=== PATIENT | male | born 1990 | race Caucasian/White ===

== ENCOUNTER 2022-02-07 07:58 | Outpatient (REF) | payer BC, MEDICAID, SELFPAY ==
[2022-02-07 09:32] LABS: Alanine Aminotransferase 34 U/L (0-40); Albumin Level 4.7 g/dL (3.5-5.0); Alkaline Phosphatase 59 U/L (39-117); Anion Gap 16 (12-20); Aspartate Amino Transferase 47 U/L (5-37); Bilirubin Total < 0.2 mg/dL (0.0-1.0); Blood Urea Nitrogen 11 mg/dL (9-16); Carbon Dioxide 26 mmol/L (22-29); Chloride 103 mmol/L (96-108); Estimated Glomerular Filt Rate > 60; Glucose Random 116 mg/dL (60-115); Potassium 3.8 mmol/L (3.3-5.1); Sodium 141 mmol/L (135-145); Total Protein 7.1 g/dL (6.5-8.0)
[2022-02-07 09:53] LABS: Amphetamine Screen Urine Not Detected (Not Detect); Barbiturates, Urine Not Detected (Not Detect); Benzodiazepines Screen Urine Not Detected (Not Detect); Cannabinoid Screen Urine Not Detected (Not Detect); Cocaine Screen Urine Not Detected (Not Detect); Fentanyl, urine Not Detected (Not Detect); Opiate Screen Urine Not Detected (Not Detect); Phencyclidine Screen Urine Not Detected (Not Detect)
[2022-02-07 09:54] LABS: Free T4 (Free Thyroxine) 1.06 ng/dL (0.71-1.85); Thyroid Stimulating Hormone 1.41 uIU/mL (0.32-4.0)
== END 2022-02-07 07:59 | disposition home or self-care (01) ==
LOC: HO.LAB 07:58
PROVIDERS: Visit Provider Nurse Practitioner Psychiatric/Mental Health
DX: F31.2 Bipolar disorder, current episode manic severe with psychotic features (principal); F12.20 Cannabis dependence, uncomplicated
CPT/HCPCS: 80053; 80307; 84439; 84443

== ENCOUNTER 2022-02-25 11:49 | Outpatient (REF) | payer MEDICAID, SELFPAY ==
[2022-02-25 12:10] LABS: MANUAL DIFF FLAG NO
[2022-02-25 12:28] LABS: Basophils Percent Auto 0.3 % (0-2); Eosinophils Absolute Auto 0.1 X10*3/uL (0.0-0.4); Eosinophils Percent Auto 1.6 % (0-4); Hematocrit 43.7 % (42.0-52.0); Hemoglobin 14.6 g/dl (14.0-18.0); Imm Gran Abs Auto 0.02 X10*3/uL (0.00-0.03); Imm Gran Pct Auto 0.5 % (0.0-0.4); Lymphocytes Absolute Auto 0.9 X10*3/uL (1.2-4.9); Lymphocytes Percent Auto 22.7 % (20-40); Mean Corpuscular HGB Conc 33.4 g/dl (31.0-36.0); Mean Corpuscular Hemoglobin 29.5 pg (27.0-33.0); Mean Corpuscular Volume 88.3 fL (80.0-98.0); Mean Platelet Volume 11.2 fL (9.4-12.4); Monocytes Absolute Auto 0.2 X10*3/uL (0.1-1.2); Neutrophils Absolute Auto 2.6 x10*3/uL (2.0-8.3); Neutrophils Percent Auto 68.9 % (45-73); Platelet Count 176 X10*3/uL (160-400); Red Blood Count 4.95 X10*6/uL (4.60-5.80); Red Cell Distribution Width 11.9 % (11.0-16.0); White Blood Count 3.8 X10*3/uL (4.8-10.8)
== END 2022-02-25 11:50 | disposition home or self-care (01) ==
LOC: HO.LAB 11:49
PROVIDERS: PCP Family Medicine; Visit Provider Nurse Practitioner Psychiatric/Mental Health
DX: F31.2 Bipolar disorder, current episode manic severe with psychotic features (principal); F12.20 Cannabis dependence, uncomplicated
CPT/HCPCS: 36415; 85025

== ENCOUNTER 2022-02-28 09:00 | Outpatient (RCR) | payer BC, OTHER, SELFPAY ==
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
--- NOTE | 2022-02-06 16:09 | P.PNPSP_ITS ---
Subjective Subjective Date of Service: 02/06/22 Reason For Visit: MDD Medical Problems Affecting Mental Status: No Interim History: Describes mood as ?I am doing okay today ?. Continues with some mood dysregulation, depression/anxiety. No SI, HI, feels safe. States that he has been experiencing frustration at times, does not feel comfortable with this. Has recently stopped cannabis, nicotine, caffeine, believes either this or his medications are causing him to have tension headaches. Medication Compliance: Yes Side effects from medications: Yes (Questioning ) Attending Groups: Yes Review of Systems Acute medical concerns: No Medical Review of Systems: unchanged Review of Systems Review of Systems Yes all other systems are reviewed and are negative Constitutional: Reports headache(s) Reports headache(s) Reports headache(s) Assessment & Plan Assessment & Plan (1) Bipolar I disorder, most recent episode manic, severe with psychotic features: Status: Acute Code(s): F31.2 - Bipolar disorder, current episode manic severe with psychotic features Assessment and Plan: Describes mood as ?I am doing okay today ?. Continues with some mood dysregulation, depression/anxiety. No SI, HI, feels safe. States that he has been experiencing frustration at times, does not feel comfortable with this. States that this was more frequent before he was hospitalized, has occurred to a lesser degree recently. Would like to focus on changing this behavior. Participating fully in groups, finding them helpful. Has recently stopped cannabis, nicotine, caffeine, believes either this or his medications are causing him to have tension headaches. We discussed this in detail, including each medication, and potential side effects. Wellbutrin is relatively new, and has been taking 300 mg XL daily. We also discussed withdrawal symptoms regarding caffeine, nicotine, cannabis. Patient is agreeable to obtaining lab work at this time, to help discern whether a medical cause or withdrawals. Patient reports he has had this checked by a neurologist in the past, as he has had these headaches in the past. He states he was told he had a normal neurological exam. He states that once in a while ?my whole body will jerk up ?. He states he has been experiencing these since 2019, and believes it is some sort of side effect to a medication he had taken in the past. (2) Post-traumatic stress disorder, chronic: Status: Acute Code(s): F43.12 - Post-traumatic stress disorder, chronic Assessment and Plan: No reports overt PTSD symptoms at this time. (3) Attention-deficit hyperactivity disorder, predominantly inattentive type: Status: Acute Code(s): F90.0 - Attention-deficit hyperactivity disorder, predominantly inattentive type Assessment and Plan: Patient taking Wellbutrin, appears to be helping with ADHD type symptoms. (4) Cannabis use disorder, severe, dependence: Status: Acute Code(s): F12.20 - Cannabis dependence, uncomplicated Assessment and Plan: Patient continues to remain abstinent from cannabis. Fully participating in COD group. Exploring addictive behaviors, focused on tools of recovery. He reports that since cessation he has been eating more sugar. He states that this is triggering symptoms of an old eating disorder, and he is concerned. He is trying other coping skills rather than consuming sugar. Plan 1. Continue with current [facility] plan of care. 2. Labs ordered including Gen Chem profile, HOYT, free T4, TSH. 3. Continue with current medication regimen at this time. 4. Follow-up as per protocol. Patient educated on: diagnosis, medication risk/benefits, substance abuse and therapeutic strategies Informed Consent: understands Reason for contiued partial hosp. stay Substantial Risk for: harm to self, inability to function, rapid decompensation and med/psych decompensation Certification I certify that partial hospital treatment is medically necessary due to the symptoms and problems resulting from the patient's mental illness and the failure to treat the patient at the partial hospital level of care would likely result in the patient requiring inpatient psychiatric care which could not be prevented at a less intensive level of care. I spent minutes with the patient and/or on the patient floor today, greater than?50% of which was spent counseling/coordinating care. Discharge Plan Discharge Attending provider: Roel Hamilton Medications: No Action lamotrigine 200 mg Tablet 200 mg PO BEDTIME prazosin 1 mg Capsule 1 mg PO BEDTIME gabapentin 400 mg Capsule 400 mg PO BEDTIME olanzapine 2.5 mg Tablet 2.5 mg PO BEDTIME lamotrigine 25 mg Tablet 50 mg PO DAILY Rx Instructions: Take 2 tabs daily. lorazepam 0.5 mg Tablet 0.5 mg PO DAILY PRN (Reason: Anxiety) gabapentin 300 mg Capsule 300 mg PO BID bupropion HCl 150 mg Tablet Extended Release 24 Hr 300 mg PO QAM Rx Instructions: Take 2 tabs daily. melatonin 5 mg Tablet 5 mg PO BEDTIME PRN (Reason: Insomnia) 95-iron [id number] 28 mg iron-800 mcg-200 mg Combo Pack PO Telehealth Telehealth Location of provider rendering services: practice address Location of patient: address on file Patient Identification confirmed using: Name, : Yes Telehealth method: video Patient verbally consented to treatment: Yes Patient verbally consented to billing insurance company: Yes Patient informed of any privacy concerns related to visit: Yes Minutes spent on Phone/Video with Pt.: 15
--- NOTE | 2022-02-06 16:18 | PC.NURSE ---
case opened in treatment team.
--- NOTE | 2022-02-06 16:31 | PC.NURSE ---
I called and spoke with pt. Reviewed treatment plan and discussed schedule. he said he is learning a lot and getting a lot out of treatment, and generally doing well with it. We spoke about aftercare as well. Pt had a scheduled intake at [facility] for Sunday 02/04 at 11am, but upon intake for PHP, was asked by staff here to reschedule so that he can attend his first day of PHP. When he called to reschedule, they told him to just call if you still need treatment after PHP . However, he said he thinks he would really like to stay with his therapist in [place], who he's been with or many years. We discussed options for finding a therapist in private practice, and how to search on [employer] search engine. I agreed to call Lizabeth Kent aprn, Lina Oneill aprn, and whoever else staff can think of as a first step. Pt also is in need of a PCP. He said he hasn't had one in many many years, sharing that he's quite avoidant. I told him I'd talk to the program nurse about this, and that she might be able to help find a PCP.
--- NOTE | 2022-02-10 11:07 | PC.NURSE ---
Spoke to Kelton this morning. His BC[employer] insurance is no longer in effect. He stated he had an appointment last Thursday to go on [employer] however he stated he also has an appointment with the same person today regarding insurance as they were not able to complete the process on Thursday. Patient plans on calling staff and letting us know of his new insurance. Patient does not want to continue the program with out insurance. Patient also had an appointment for f/u care after he was hospitalized with [facility] for a therapist and prescriber however he did not go to the appointment and he plans on calling [facility] today to rescheduled appointments.
--- NOTE | 2022-02-11 14:22 | P.PNPSP_ITS ---
Subjective Subjective Date of Service: 02/11/22 Reason For Visit: MDD Medical Problems Affecting Mental Status: No Interim History: Describes mood as up and down . States he has had several crying spells. Reports feeling like he is spiraling mid day. Complains of headache, unsure if it is related to recent cannabis cessation, caffeine cessation, current relationship stress, possibly medications. Itchiness on scalp, rash for past 1 and half weeks. Had recent increase of Lamictal, also started using Endo shampoo. No SI/HI, no safety concerns. Medication Compliance: Yes Side effects from medications: Yes (Possible, unsure.) Attending Groups: Yes Review of Systems Acute medical concerns: No Medical Review of Systems: changed Review of Systems Review of Systems Yes all other systems are reviewed and are negative Constitutional: Reports no additional constitutional complaints Comments: No concerns with vision. Reports Normal hearing present Cardiovascular: Reports no additional cardiovascular complaints Respiratory: Reports no additional respiratory complaints Gastrointestinal: Reports no additional gastrointestinal complaints Genitourinary: Reports no additional male genitourinary complaints Musculoskeletal: Reports no additional musculoskeletal complaints Skin/Breast: Reports dry skin (on scalp), Reports erythema (on scalp) and Reports rash (on scalp) Reports Normal hearing present Mental Status Exam Mental Status Exam Narrative: Alert and oriented x4, appropriate/attentive during encounter. NAD. Patient Appearance: Appropriate Patient Orientation: Person, Place, Time and Situation Level of Consciousness: Appropriate Patient Behavior: Appropriate, Cooperative and Good Eye Contact Mood Description: Depressed, Anxious and Labile Affect Description: Anxious Patient Cognition Impaired: No Ability to Follow Directions: Good Speech Pattern: Clear, Appropriate and Coherent Memory Description: Intact Hallucinations: None Delusions: Not Present Thought Process: Intact Thought Content: positive for Intact Depressive Symptoms: Increased Anxiety, Difficulty Sleeping, Feelings of Guilt and Unexplained Headaches Judgement: Fair Assessment & Plan Assessment & Plan (1) Bipolar I disorder, most recent episode manic, severe with psychotic features: Status: Acute Code(s): F31.2 - Bipolar disorder, current episode manic severe with psychotic features Assessment and Plan: Describes mood as up and down . States he has had several crying spells. Continues with increased anxiety, asking for antianxiety medication, as he only has 6 tabs of lorazepam left. We discussed adding BuSpar scheduled, discuss risks and benefits, common side effects, adverse effects, advantages, alternatives to treatment. He was in agreement to start this medication at this time. Reports feeling like he is spiraling mid day. He states that he does not feel his mood is appropriately regulated at this time, interested in increasing olanzapine. Discussed this in detail, patient agreeable to increase dose to 2.5 mg twice daily. Complains of headache, unsure if it is related to recent cannabis cessation, caffeine cessation, current relationship stress, possibly medications. Lab results reviewed with patient. Itchiness on scalp, localized rash for past 1 and half weeks on back of head. Rash not spreading or worsening. Had recent increase of Lamictal, but also started using a new shampoo 1 1/2 weeks ago. Discussed recent increase of Lamictal, as well as use of new shampoo as possible causes of rash. Patient has a history of taking Lamictal with no side effects, no previous rashes. Discussed stopping the new shampoo to see if rash resolves. No SI/HI, no safety concerns. (2) Post-traumatic stress disorder, chronic: Status: Acute Code(s): F43.12 - Post-traumatic stress disorder, chronic Assessment and Plan: Patient utilizing prazosin 1 mg at night. Questions whether not he should stop this medication at this time, as he continues with dreams, but does not describe them as fully nightmares. We discussed continuing this medication at this time, as it appears to be helping with PTSD symptoms. (3) Attention-deficit hyperactivity disorder, predominantly inattentive type: Status: Acute Code(s): F90.0 - Attention-deficit hyperactivity disorder, predominantly inattentive type Assessment and Plan: Patient takes Wellbutrin 300 mg daily. He reports that his appears to be helping with ADHD, but is wondering if this is contributing to headaches. We discussed this in detail. Patient had recently stopped using cannabis, as well as nicotine and caffeine. Patient states he has begun to use low amount of nicotine gum, as well as low amount of caffeine. Will wait to see if this resolves headaches, with possible discussion of lowering Wellbutrin dose during next encounter if needed. (4) Cannabis use disorder, severe, dependence: Status: Acute Code(s): F12.20 - Cannabis dependence, uncomplicated Assessment and Plan: Patient continues to remain abstinent from cannabis use at this time. Plan 1. Continue with current [facility] plan of care. 2. Start BuSpar 10 mg b.i.d.. Script for 7 days sent to pharmacy. 3. Increase the olanzapine to 2.5 mg b.i.d., 7 day script sent to pharmacy. 4. Follow-up as per protocol. Patient educated on: diagnosis, medication risk/benefits, substance abuse and therapeutic strategies Informed Consent: understands Reason for contiued partial hosp. stay Substantial Risk for: harm to self, inability to function, rapid decompensation and med/psych decompensation Certification I certify that partial hospital treatment is medically necessary due to the symptoms and problems resulting from the patient's mental illness and the failure to treat the patient at the partial hospital level of care would likely result in the patient requiring inpatient psychiatric care which could not be prevented at a less intensive level of care. I spent minutes with the patient and/or on the patient floor today, greater than?50% of which was spent counseling/coordinating care. Discharge Plan Discharge Attending provider: Roel Hamilton Medications: New olanzapine 2.5 mg tablet 2.5 mg PO BID Qty: 14 0RF buspirone 10 mg tablet 10 mg PO BID Qty: 14 0RF Discontinued olanzapine 2.5 mg Tablet 2.5 mg PO BEDTIME No Action lamotrigine 200 mg Tablet 200 mg PO BEDTIME prazosin 1 mg Capsule 1 mg PO BEDTIME gabapentin 400 mg Capsule 400 mg PO BEDTIME lamotrigine 25 mg Tablet 50 mg PO DAILY Rx Instructions: Take 2 tabs daily. lorazepam 0.5 mg Tablet 0.5 mg PO DAILY PRN (Reason: Anxiety) gabapentin 300 mg Capsule 300 mg PO BID bupropion HCl 150 mg Tablet Extended Release 24 Hr 300 mg PO QAM Rx Instructions: Take 2 tabs daily. melatonin 5 mg Tablet 5 mg PO BEDTIME PRN (Reason: Insomnia) 95-iron [id number] 28 mg iron-800 mcg-200 mg Combo Pack PO Telehealth Telehealth Location of provider rendering services: practice address Location of patient: address on file Patient Identification confirmed using: Name, : Yes Telehealth method: video Patient verbally consented to treatment: Yes Patient verbally consented to billing insurance company: Yes Patient informed of any privacy concerns related to visit: Yes Minutes spent on Phone/Video with Pt.: 25
--- NOTE | 2022-02-13 16:28 | PC.NURSE ---
I met with pt at their request. The reported feeling quite overwhelmed with choosing an insurance plan and with accessing a PCP and med provider. They asked for help calling [facility] to see if they can get in with a PCP and possible psychiatric med provider. They explained that they were told by the hospital financial counselor that they should first make an appt at [facility], who will take care plus, then choose a plan. They called [facility] from my office and were told that the agency doesn't take Care plus Insurance. We spoke about prioritizing tasks and pt agreed to call the financial counselor back.
--- NOTE | 2022-02-17 10:17 | HO.PHPPROGNO ---
Subjective Subjective Date of Service: 02/17/22 Reason For Visit: MDD Medical Problems Affecting Mental Status: No Interim History: States ?regulating my mood is tough without the cannabis ?. Finding BuSpar helpful, wishes to increase it to 3 times daily. Needs refill of melatonin. No SI/HI, no safety concerns. Medication Compliance: Yes Side effects from medications: No Attending Groups: Yes Review of Systems Acute medical concerns: No Medical Review of Systems: unchanged Review of Systems Review of Systems Yes all other systems are reviewed and are negative Constitutional: Reports no additional constitutional complaints Mental Status Exam Mental Status Exam Narrative: Alert and oriented x4, appropriate/attentive during encounter. NAD. Patient Appearance: Appropriate Patient Orientation: Person, Place, Time and Situation Level of Consciousness: Appropriate Patient Behavior: Appropriate, Cooperative and Good Eye Contact Mood Description: Depressed and Anxious Affect Description: Anxious Patient Cognition Impaired: No Ability to Follow Directions: Good Speech Pattern: Clear, Appropriate and Coherent Memory Description: Intact Hallucinations: None Delusions: Not Present Thought Process: Intact Thought Content: positive for Intact Depressive Symptoms: Increased Anxiety, Difficulty Sleeping and Feelings of Guilt Judgement: Fair Assessment & Plan Assessment & Plan (1) Bipolar I disorder, most recent episode manic, severe with psychotic features: Status: Acute Code(s): F31.2 - Bipolar disorder, current episode manic severe with psychotic features Assessment and Plan: States ?regulating my mood is tough without the cannabis ?. No real mood lability, no increased depression or any type of hypomanic/manic symptoms. Finding BuSpar helpful, wishes to increase it to 3 times daily. Needs refill of melatonin. No SI/HI, no safety concerns. (2) Cannabis use disorder, severe, dependence: Status: Acute Code(s): F12.20 - Cannabis dependence, uncomplicated Assessment and Plan: Continues to remain abstinent from cannabis, finding this to be difficult, reports cravings at times. We discussed adding regular morning exercise, eating healthy foods, increase hydration in order to help with withdrawals. (3) Post-traumatic stress disorder, chronic: Status: Acute Code(s): F43.12 - Post-traumatic stress disorder, chronic Plan 1. Continue with current [facility] plan of care. 2. Increase BuSpar to 10 mg t.i.d.. 3. Refill of melatonin 5 mg p.r.n. for sleep sent to pharmacy. 4. Follow-up as per protocol. Patient educated on: diagnosis, medication risk/benefits, substance abuse and therapeutic strategies Informed Consent: understands Reason for contiued partial hosp. stay Substantial Risk for: inability to function, rapid decompensation and med/psych decompensation Certification I certify that partial hospital treatment is medically necessary due to the symptoms and problems resulting from the patient's mental illness and the failure to treat the patient at the partial hospital level of care would likely result in the patient requiring inpatient psychiatric care which could not be prevented at a less intensive level of care. I spent minutes with the patient and/or on the patient floor today, greater than?50% of which was spent counseling/coordinating care. Discharge Plan Discharge Attending provider: Roel Hamilton Medications: New olanzapine 2.5 mg tablet 2.5 mg PO BID Qty: 14 0RF prazosin 1 mg capsule 1 mg PO BEDTIME 30 Days Qty: 30 0RF lamotrigine 200 mg tablet 200 mg PO BEDTIME Qty: 30 0RF gabapentin 400 mg capsule 400 mg PO BEDTIME Qty: 30 0RF gabapentin 300 mg capsule 300 mg PO BID Qty: 60 0RF buspirone 10 mg tablet 10 mg PO TID 30 Days Qty: 90 0RF melatonin 5 mg tablet 5 mg PO BEDTIME PRN (Reason: sleep) Qty: 30 0RF Discontinued lamotrigine 200 mg Tablet 200 mg PO BEDTIME prazosin 1 mg Capsule 1 mg PO BEDTIME gabapentin 400 mg Capsule 400 mg PO BEDTIME olanzapine 2.5 mg Tablet 2.5 mg PO BEDTIME gabapentin 300 mg Capsule 300 mg PO BID melatonin 5 mg Tablet 5 mg PO BEDTIME PRN (Reason: Insomnia) No Action lamotrigine 25 mg Tablet 50 mg PO DAILY Rx Instructions: Take 2 tabs daily. lorazepam 0.5 mg Tablet 0.5 mg PO DAILY PRN (Reason: Anxiety) bupropion HCl 150 mg Tablet Extended Release 24 Hr 300 mg PO QAM Rx Instructions: Take 2 tabs daily. 95-iron [id number] 28 mg iron-800 mcg-200 mg Combo Pack PO
--- NOTE | 2022-02-19 11:19 | PC.NURSE ---
Patient does not want to take Buspar. Stated it is not helping with his anxiety and he feels tingling sensations and skin tightening while on the medication. Daya Vargas CNP is aware. Patient discontinuing medication.
--- NOTE | 2022-02-20 11:56 | P.PNPSP_ITS ---
Subjective Subjective Date of Service: 02/20/22 Reason For Visit: MDD Medical Problems Affecting Mental Status: No Interim History: Kelton reports feeling some anxiety, but overall improved. No mood lability reported. Continues to maintain abstinence from cannabis use. Asking for refill olanzapine. Has only been taking at night, not twice daily. Stopped BuSpar due to side effects. Gives verbal permission and is requesting discharge summary be sent to his therapist at fax [phone]. Medication Compliance: Yes Side effects from medications: Yes Attending Groups: Yes Review of Systems Acute medical concerns: No Review of Systems Review of Systems Yes all other systems are reviewed and are negative Constitutional: Reports no additional constitutional complaints Mental Status Exam Mental Status Exam Narrative: Alert and oriented x4, appropriate/attentive during encounter. NAD. Patient Appearance: Appropriate Patient Orientation: Person, Place, Time and Situation Level of Consciousness: Appropriate Patient Behavior: Appropriate, Cooperative and Good Eye Contact Mood Description: Anxious (States it is improving but still present.) Affect Description: Anxious Patient Cognition Impaired: No Ability to Follow Directions: Good Speech Pattern: Clear, Appropriate and Coherent Memory Description: Intact Hallucinations: None Delusions: Not Present Thought Process: Intact Thought Content: positive for Intact Depressive Symptoms: Increased Anxiety Judgement: Good Assessment & Plan Assessment & Plan (1) Bipolar I disorder, most recent episode manic, severe with psychotic features: Status: Acute Code(s): F31.2 - Bipolar disorder, current episode manic severe with psychotic features (2) Post-traumatic stress disorder, chronic: Status: Acute Code(s): F43.12 - Post-traumatic stress disorder, chronic (3) Cannabis use disorder, severe, dependence: Status: Acute Code(s): F12.20 - Cannabis dependence, uncomplicated (4) Attention-deficit hyperactivity disorder, predominantly inattentive type: Status: Acute Code(s): F90.0 - Attention-deficit hyperactivity disorder, predominantly inattentive type Plan Kelton reports feeling some anxiety, but overall improved. Has found groups to be helpful. Reports feels stable for discharge from [facility]. No mood lability reported. No SI/HI, no safety concerns. No AH/VH. Continues to maintain abstinence from cannabis use. Asking for refill olanzapine. Has only been taking at night, not twice daily. Stopped BuSpar due to side effects. 1. Refill of olanzapine sent to pharmacy for 30 day supply. 2. Patient appears stable for discharge from [facility] at this time. Patient educated on: diagnosis, medication risk/benefits, substance abuse and therapeutic strategies Informed Consent: understands Reason for contiued partial hosp. stay Substantial Risk for: stable for discharge Certification I certify that partial hospital treatment is medically necessary due to the symptoms and problems resulting from the patient's mental illness and the failure to treat the patient at the partial hospital level of care would likely result in the patient requiring inpatient psychiatric care which could not be prevented at a less intensive level of care. I spent minutes with the patient and/or on the patient floor today, greater than?50% of which was spent counseling/coordinating care. Discharge Plan Discharge Attending provider: Roel Hamilton Additional Instructions: New PCP appointment with [facility] Margarita KELLER on Thursday at 1:30 PM. Medications: New prazosin 1 mg capsule 1 mg PO BEDTIME 30 Days Qty: 30 0RF lamotrigine 200 mg tablet 200 mg PO BEDTIME Qty: 30 0RF gabapentin 400 mg capsule 400 mg PO BEDTIME Qty: 30 0RF gabapentin 300 mg capsule 300 mg PO BID Qty: 60 0RF melatonin 5 mg tablet 5 mg PO BEDTIME PRN (Reason: sleep) Qty: 30 0RF olanzapine 2.5 mg tablet 2.5 mg PO BEDTIME 30 Days Qty: 30 0RF Discontinued lamotrigine 200 mg Tablet 200 mg PO BEDTIME prazosin 1 mg Capsule 1 mg PO BEDTIME gabapentin 400 mg Capsule 400 mg PO BEDTIME olanzapine 2.5 mg Tablet 2.5 mg PO BEDTIME lorazepam 0.5 mg Tablet 0.5 mg PO DAILY PRN (Reason: Anxiety) gabapentin 300 mg Capsule 300 mg PO BID melatonin 5 mg Tablet 5 mg PO BEDTIME PRN (Reason: Insomnia) No Action lamotrigine 25 mg Tablet 50 mg PO DAILY Rx Instructions: Take 2 tabs daily. bupropion HCl 150 mg Tablet Extended Release 24 Hr 300 mg PO QAM Rx Instructions: Take 2 tabs daily. 95-iron cek-vqaud-[id number] 28 mg iron-800 mcg-200 mg Combo Pack PO Stand Alone Forms: Patient Portal Discharge page
--- NOTE | 2022-02-24 14:47 | PC.NURSE ---
Pt called and I spoke to him. He was not in program today because he had his first appointment with [facility] (PCP- Dr. Linda Cook). He said that despite what he had been told when he made this appointment, he was told today that they will not be able to get him in with a psychiatrist there. He does want to stay with his therapist in [place], and said he has reconsidered and wants to be referred to Lizabeth Sanon APRN (which was the initial plan). I agreed to call and make this referrral.
--- NOTE | 2022-02-25 11:38 | P.PNPSP_ITS ---
Subjective Subjective Date of Service: 02/25/22 Reason For Visit: MDD Medical Problems Affecting Mental Status: No Interim History: Reports increase anxiety, increased anger with angry outbursts. Did not feel ready for discharge last Thursday, is now currently continuing through this week. No SI/HI, no safety concerns. Medication Compliance: Yes Side effects from medications: No Attending Groups: Yes Review of Systems Acute medical concerns: No Medical Review of Systems: unchanged Mental Status Exam Mental Status Exam Narrative: Alert and oriented x4, appropriate/attentive during encounter. NAD. Patient Appearance: Appropriate Patient Orientation: Person, Place, Time and Situation Level of Consciousness: Appropriate Patient Behavior: Appropriate, Cooperative and Good Eye Contact Mood Description: Anxious and Angry (Reports feeling increased anger, angry outbursts) Affect Description: Anxious Patient Cognition Impaired: No Ability to Follow Directions: Good Speech Pattern: Clear, Appropriate and Coherent Memory Description: Intact Hallucinations: None Delusions: Not Present Thought Process: Intact Thought Content: positive for Intact Depressive Symptoms: Increased Anxiety Judgement: Fair Assessment & Plan Assessment & Plan (1) Cannabis use disorder, severe, dependence: Status: Acute Code(s): F12.20 - Cannabis dependence, uncomplicated Assessment and Plan: Reports it has increased anxiety and anger/angry outbursts, believes that his marijuana use had dampened these and now that he has stopped using these symptoms have become more overt. Requesting medication to help. (2) Attention-deficit hyperactivity disorder, predominantly inattentive type: Status: Acute Code(s): F90.0 - Attention-deficit hyperactivity disorder, predominantly inattentive type (3) Post-traumatic stress disorder, chronic: Status: Acute Code(s): F43.12 - Post-traumatic stress disorder, chronic (4) Bipolar I disorder, most recent episode manic, severe with psychotic features: Status: Acute Code(s): F31.2 - Bipolar disorder, current episode manic severe with psychotic features Assessment and Plan: Denies any manic or hypomanic symptoms. Reports that he continues to struggle with mood, although it is improving. Continues with increased anxiety. Finding groups helpful. No SI/HI, no safety concerns. Plan 1. Start clonidine 0.1 mg p.r.n. daily for increased anxiety. Patient advised to hold if blood pressure under 90/60. Patient checks blood pressure every evening, reports that it typically reads as 107/68. 2. Continue other medications as currently prescribed. 3. Follow-up as per protocol. Patient educated on: diagnosis, medication risk/benefits, substance abuse and therapeutic strategies Informed Consent: understands Reason for contiued partial hosp. stay Substantial Risk for: inability to function, rapid decompensation and med/psych decompensation Certification I certify that partial hospital treatment is medically necessary due to the symptoms and problems resulting from the patient's mental illness and the failure to treat the patient at the partial hospital level of care would likely result in the patient requiring inpatient psychiatric care which could not be prevented at a less intensive level of care. I spent minutes with the patient and/or on the patient floor today, greater than?50% of which was spent counseling/coordinating care. Discharge Plan Discharge Attending provider: Roel Hamilton Additional Instructions: New PCP appointment with [facility] Margarita KELLER on Thursday at 1:30 PM. Medications: New prazosin 1 mg capsule 1 mg PO BEDTIME 30 Days Qty: 30 0RF lamotrigine 200 mg tablet 200 mg PO BEDTIME Qty: 30 0RF gabapentin 400 mg capsule 400 mg PO BEDTIME Qty: 30 0RF gabapentin 300 mg capsule 300 mg PO BID Qty: 60 0RF melatonin 5 mg tablet 5 mg PO BEDTIME PRN (Reason: sleep) Qty: 30 0RF olanzapine 2.5 mg tablet 2.5 mg PO BEDTIME 30 Days Qty: 30 0RF clonidine HCl 0.1 mg tablet 0.1 mg PO DAILY PRN (Reason: anxiety) Qty: 14 0RF Rx Instructions: Hold if systolic bp 90 or lower. Discontinued lamotrigine 200 mg Tablet 200 mg PO BEDTIME prazosin 1 mg Capsule 1 mg PO BEDTIME gabapentin 400 mg Capsule 400 mg PO BEDTIME olanzapine 2.5 mg Tablet 2.5 mg PO BEDTIME lorazepam 0.5 mg Tablet 0.5 mg PO DAILY PRN (Reason: Anxiety) gabapentin 300 mg Capsule 300 mg PO BID melatonin 5 mg Tablet 5 mg PO BEDTIME PRN (Reason: Insomnia) No Action lamotrigine 25 mg Tablet 50 mg PO DAILY Rx Instructions: Take 2 tabs daily. bupropion HCl 150 mg Tablet Extended Release 24 Hr 300 mg PO QAM Rx Instructions: Take 2 tabs daily. 95-iron fby-rqykn-[id number] 28 mg iron-800 mcg-200 mg Combo Pack PO Stand Alone Forms: Patient Portal Discharge page
--- NOTE | 2022-02-25 14:04 | PC.NURSE ---
At pt's request, I called and placed a referral for pt to see Lizabeth Sanon APRN. He now has an intake appointment with Lizabeth Sanon on 10/03/21, at 11am, via telehealth. Bloodwork has been ordered at Lizabeth Sanon's request, and pt is aware of this.
--- NOTE | 2022-02-28 10:26 | HO.PHPPROGNO ---
Subjective Subjective Date of Service: 02/28/22 Reason For Visit: MDD Medical Problems Affecting Mental Status: No Interim History: Describes mood as feeling good, better . Took prn clonidine once, did not find helpful with anxiety, but did find it made him feel physically tired, sedated. Reports overall feeling mood has stabilized, less anxious. No angry outbursts. Feels stable for discharge from [facility]. Has outpatient psychiatric provider appointment in place for next Thursday. Medication Compliance: Yes Side effects from medications: Yes (Clonidine, sedation.) Attending Groups: Yes Review of Systems Acute medical concerns: No Medical Review of Systems: unchanged Review of Systems Review of Systems Yes all other systems are reviewed and are negative Constitutional: Reports no additional constitutional complaints Mental Status Exam Mental Status Exam Narrative: Alert and oriented x4, appropriate/attentive during encounter. NAD. No SI/HI, no mood lability or constriction. Patient Appearance: Appropriate Patient Orientation: Person, Place, Time and Situation Level of Consciousness: Appropriate Patient Behavior: Appropriate, Cooperative and Good Eye Contact Mood Description: Anxious Affect Description: Anxious Patient Cognition Impaired: No Ability to Follow Directions: Good Speech Pattern: Clear, Appropriate and Coherent Memory Description: Intact Hallucinations: None Delusions: Not Present Thought Process: Intact Thought Content: positive for Intact Depressive Symptoms: Increased Anxiety Judgement: Good Assessment & Plan Assessment & Plan (1) Bipolar I disorder, most recent episode manic, severe with psychotic features: Status: Acute Code(s): F31.2 - Bipolar disorder, current episode manic severe with psychotic features Assessment and Plan: Describes mood as feeling good, better . Took prn clonidine once, did not find helpful with anxiety, but did find it made him feel physically tired, sedated. We reviewed medication in detail, also including fact that he takes prazosin at night. Does not have nightmares, but was told he should take it by a previous provider to help with PTSD symptoms. Discussed blood pressure parameters. Also discussed possibility that new provider will not keep both medications, most likely will discontinue 1. He states he does not like the clonidine, does not plan to take it. Reports overall feeling mood has stabilized, less anxious. Although he does continue with some degree of anxiety, he feels overall improved. No mood lability noted. No SI/HI, no safety concerns Feels stable for discharge from [facility]. Has outpatient psychiatric provider appointment in place for next Thursday. We reviewed his most recent lab work. Results to be sent to his new psychiatric provider as well as his new primary care provider. (2) Post-traumatic stress disorder, chronic: Status: Acute Code(s): F43.12 - Post-traumatic stress disorder, chronic (3) Cannabis use disorder, severe, dependence: Status: Acute Code(s): F12.20 - Cannabis dependence, uncomplicated Assessment and Plan: Patient has remained abstinent from cannabis as well of alcohol for over an month. Feels physically better. Participated in substance use groups while here, plans to follow-up with treatment going forward. (4) Attention-deficit hyperactivity disorder, predominantly inattentive type: Status: Acute Code(s): F90.0 - Attention-deficit hyperactivity disorder, predominantly inattentive type Plan 1. Patient appears stable for discharge from [facility] at this time. 2. Patient to follow up with outpatient providers going forward. Patient educated on: diagnosis, medication risk/benefits, substance abuse and therapeutic strategies Informed Consent: understands Reason for contiued partial hosp. stay Substantial Risk for: stable for discharge Certification I certify that partial hospital treatment is medically necessary due to the symptoms and problems resulting from the patient's mental illness and the failure to treat the patient at the partial hospital level of care would likely result in the patient requiring inpatient psychiatric care which could not be prevented at a less intensive level of care. I spent minutes with the patient and/or on the patient floor today, greater than?50% of which was spent counseling/coordinating care. Discharge Plan Discharge Attending provider: Roel Hamilton Additional Instructions: New PCP appointment with [facility] Margarita KELLER on Thursday at 1:30 PM. Telehealth appointment with Lizabeth Sanon APRN on 03/05/22 at 11am for medication management. Medications: New prazosin 1 mg capsule 1 mg PO BEDTIME 30 Days Qty: 30 0RF lamotrigine 200 mg tablet 200 mg PO BEDTIME Qty: 30 0RF gabapentin 400 mg capsule 400 mg PO BEDTIME Qty: 30 0RF gabapentin 300 mg capsule 300 mg PO BID Qty: 60 0RF melatonin 5 mg tablet 5 mg PO BEDTIME PRN (Reason: sleep) Qty: 30 0RF olanzapine 2.5 mg tablet 2.5 mg PO BEDTIME 30 Days Qty: 30 0RF clonidine HCl 0.1 mg tablet 0.1 mg PO DAILY PRN (Reason: anxiety) Qty: 14 0RF Rx Instructions: Hold if systolic bp 90 or lower. Discontinued lamotrigine 200 mg Tablet 200 mg PO BEDTIME prazosin 1 mg Capsule 1 mg PO BEDTIME gabapentin 400 mg Capsule 400 mg PO BEDTIME olanzapine 2.5 mg Tablet 2.5 mg PO BEDTIME lorazepam 0.5 mg Tablet 0.5 mg PO DAILY PRN (Reason: Anxiety) gabapentin 300 mg Capsule 300 mg PO BID melatonin 5 mg Tablet 5 mg PO BEDTIME PRN (Reason: Insomnia) No Action lamotrigine 25 mg Tablet 50 mg PO DAILY Rx Instructions: Take 2 tabs daily. bupropion HCl 150 mg Tablet Extended Release 24 Hr 300 mg PO QAM Rx Instructions: Take 2 tabs daily. 95-iron [id number] 28 mg iron-800 mcg-200 mg Combo Pack PO Stand Alone Forms: Patient Portal Discharge page Patient Education: Prazosin (By mouth), Clonidine (By mouth), Bipolar Disorder (DC), Cannabis Abuse (DC)
--- NOTE | 2022-02-28 12:11 | PC.NURSE ---
Patient scheduled for routine discharge today. Feeling better after treatment at [facility]. Denied SI or thoughts to harm himself. Reviewed patient medications with patient. Patient reports understanding of what he takes for medications and reports taking them as prescribed. Patient given copy of his medication list and education about Bipolar disorder and Cannabis abuse. Patient has the crisis number if needed.
--- NOTE | 2022-02-28 15:25 | PC.NURSE ---
I called and left a message for Luis Adkins LCSW, pt's therapist , informing him of pt's discharge from [facility] today and of his clinical presentation at discharge.
== END 2022-02-28 23:59 | disposition home or self-care (01) ==
LOC: HO.PHPA 09:00
PROVIDERS: Visit Provider Psychiatry & Neurology Psychiatry
DX: F31.2 Bipolar disorder, current episode manic severe with psychotic features (principal); F43.12 Post-traumatic stress disorder, chronic; F90.0 Attention-deficit hyperactivity disorder, predominantly inattentive type; F12.20 Cannabis dependence, uncomplicated; Z79.899 Other long term (current) drug therapy
CPT/HCPCS: 90791; 90853